=== PATIENT | female | born 1995 | race Caucasian/White ===

== ENCOUNTER 2021-03-14 06:00 | Inpatient (IN) | payer OTHER ==
[2021-03-11 10:29] VITALS: BMI 27.6
[2021-03-14] MEDS ORDERED: LACTATED RINGERS 1,000 ML IV ONE (06:15)
[2021-03-14] MEDS ORDERED: CITRIC ACID-SODIUM CITRATE 15 ML CUP PO ONE (06:15)
[2021-03-14] MEDS: LACTATED RINGERS 1,000 ML IV SCH ×3 (06:23→19:16)
[2021-03-14 06:33] LABS: Basophils % (A) 0 %; Eosinophils # (A) 0.1 k/uL (0-0.7); Eosinophils % (A) 1 %; HGB 12.8 gm/dL (11.4-16.0); Lymphocytes # (A) 1.4 k/uL (1.0-4.8); Lymphocytes % (A) 20 %; MCH 30.3 pg (25.0-35.0); MCHC 34.6 g/dL (31.0-37.0); MCV 87.6 fL (80.0-100.0); Monocytes # (A) 0.3 k/uL (0-1.0); Monocytes % (A) 5 %; Neutrophils # (A) 4.9 k/uL (1.3-7.7); Neutrophils % (A) 71 %; Platelet Count 152 k/uL (150-450); RBC 4.22 m/uL (3.80-5.40); WBC 6.9 k/uL (3.8-10.6)
[2021-03-14 06:41] LABS: Amphetamine Screen,Urine Not Detected (NotDetected); Barbiturate Screen,Urine Not Detected (NotDetected); Benzodiazepines Screen,Urine Not Detected (NotDetected); Cocaine Screen,Urine Not Detected (NotDetected); Methadone Screen, Urine Not Detected (NotDetected); Opiate Screen,Urine Not Detected (NotDetected); Oxycodone Screen, Urine Not Detected (NotDetected); Phencyclidine Screen,Urine Not Detected (NotDetected); Tricyclic Antidepressant,Urine Not Detected (NotDetected); Urn Cannabinoid Scrn Detected (NotDetected)
--- NOTE | 2021-03-14 07:38 | P.HPOB ---
History of Present Illness H&P Date: 03/14/21 Chief Complaint: Intrauterine family planning Patient is a 25-year-old 5 para 2 at 39 weeks gestation arise for repeat section and tubal. She is transferred my care at approximately 37 weeks due to the fact that her prior hospital does not due to ligations and she desires permanent sterilization. Risks/benefits/alternatives to this procedure were reviewed with the patient in detail all questions were answered for her prior to proceeding to the operative. Her course otherwise based on her description was unremarkable. She does have mild decrease in her platelets but they're stable at this time. No other signs or symptoms of preeclampsia or other thrombophilia this. On physical exam vital signs are stable and afebrile. Heart regular, lungs clear, extremities without pain. Abdomen soft and uterus is gravid. A reactive nonstress test is noted and antibiotics have been provided. We'll plan repeat section with bilateral tubal occlusion with Filshie clips. Past Medical History Past Medical History: GERD/Reflux Additional Past Medical History / Comment(s): low blood iron History of Any Multi-Drug Resistant Organisms: None Reported Past Surgical History: Appendectomy, Section, Tonsillectomy Past Anesthesia/Blood Transfusion Reactions: No Reported Reaction Past Psychological History: Anxiety, Depression Smoking Status: Never smoker Past Alcohol Use History: None Reported Past Drug Use History: Marijuana Additional Drug Use History / Comment(s): occasional for nausea - Past Family History Mother Family Medical History: No Reported History Medications and Allergies Home Medications Medication Instructions Recorded Confirmed Type Ferrous Sulfate [Feosol] 325 mg PO DAILY 03/11/21 03/14/21 History Pnv No.95/Ferrous Fum/Folic AC 1 each PO DAILY 03/11/21 03/14/21 History [ Multivitamin Tablet] Allergies Allergy/AdvReac Type Severity Reaction Status Date / Time No Known Allergies Allergy Verified 03/14/21 06:14 Exam Osteopathic Statement: *. No significant issues noted on an osteopathic structural exam other than those noted in the History and Physical/Consult. Vital Signs Temp Pulse Resp BP Pulse Ox 03/14/21 06:13 96.1 F L 78 16 127/61 96 Intake and Output 03/13/21 03/14/21 03/14/21 22:59 06:59 14:59 Other: Weight 77.564 kg - OBG Physical Exam Breast: both: normal (no masses) Abdomen: bowel sounds normal, no diffuse tenderness, no bruit present, no guarding noted, no hepatomegaly, no splenomegaly, no mass Vulva: both: normal Vagina: normal moisture, no discharge Cervix: no lesion, no discharge Uterus: normal size, normal contour Adnexa: both: normal Anus/Rectum: normal perianal skin, no rectal mass, no hemorrhoids, heme negative Results Result Diagrams: 03/14/21 06:20 Abnormal Lab Results - Last 24 Hours (Table) 03/14/21 Range/Units 06:16 U Marijuana (THC) Screen Detected H (NotDetected)
[2021-03-14] MEDS ORDERED: OXYTOCIN 30 UNITS/500 ML NS BAG IV ONE (07:50)
[2021-03-14] MEDS ORDERED: KETOROLAC 15 MG/ML 1 ML VIAL ONE (07:50)
[2021-03-14] MEDS ORDERED: MORPHINE SULFATE (PF) 0.3 MG/0.3 ML SYR ONE (07:50)
[2021-03-14] MEDS ORDERED: ONDANSETRON 4 MG/2 ML VIAL ONE (07:50)
[2021-03-14] MEDS ORDERED: PHENYLEPHRINE-0.9% NACL SYG 1,000 MCG/10 ML SYRINGE ONE (07:50)
[2021-03-14] MEDS ORDERED: NALBUPHINE 10 MG/ML (1 ML AMP) ONE (07:50)
[2021-03-14] MEDS ORDERED: diphenhydrAMINE 50 MG CAP PO PRN (08:41)
[2021-03-14] MEDS ORDERED: HYDROmorphone 2 MG TAB PO PRN ×2 (08:41)
[2021-03-14] MEDS ORDERED: diphenhydrAMINE 50 MG/ML 1 ML VIAL IVP PRN (08:41)
[2021-03-14] MEDS ORDERED: MEASLES-MUMPS-RUBELLA VACC/PF 12,500 UNIT/0.5 ML VIAL SQ ONE (08:41)
[2021-03-14] MEDS ORDERED: METOCLOPRAMIDE 5 MG/ML 2 ML VIAL IVP PRN (08:41)
[2021-03-14] MEDS ORDERED: SIMETHICONE 80 MG CHEWABLE PO PRN (08:41)
[2021-03-14] MEDS ORDERED: ONDANSETRON 4 MG/2 ML VIAL IVP PRN (08:41)
[2021-03-14] MEDS ORDERED: diphenhydrAMINE 25 MG CAP PO PRN (08:41)
[2021-03-14] MEDS ORDERED: NALOXONE 0.4 MG/ML 1 ML VIAL IV PRN ×2 (08:41→08:43)
[2021-03-14] MEDS ORDERED: ZOLPIDEM 5 MG TAB PO PRN (08:41)
[2021-03-14] MEDS ORDERED: MORPHINE SULFATE 2 MG/ML SYRINGE IVP PRN (08:43)
[2021-03-14] MEDS ORDERED: NALBUPHINE 10 MG/ML (1 ML AMP) IV PRN (08:43)
--- NOTE | 2021-03-14 08:45 | P.OP ---
Date of Procedure: 03/14/21 Preoperative Diagnosis: Intrauterine at term: Prior surgery and sections: Family planning Postoperative Diagnosis: Same with adhesions Procedure(s) Performed: Repeat low transverse section with lysis of adhesions and bilateral partial salpingectomy Anesthesia: spinal Surgeon: Chau Ojeda Caustic Room Operator #1: Shon Kong Estimated Blood Loss (ml): 300 IV fluids (ml): 1,000 Urine output (ml): 500 Pathology: none sent Condition: stable Disposition: floor Operative Findings: Male scores of 9 and 9 at one and 5 minutes respectively and weight was 6 lbs. 15 oz. Description of Procedure: Patient states the operating suite where a spinal anesthetic found be adequate. She was prepped and draped in normal sterile fashion and placed in dorsal supine position with leftward tilt. Initially a Pfannenstiel skin incision was made and this incision was then carried through to the underlying layer of the fascia was second knife. Fascia was then nicked in the midline and this opening was extended laterally with Hernandez scissors. Superior and inferior aspect of this incision were then grasped tented up and bluntly and sharply dissected off the rectus muscles. Rectus muscles were then divided midline and blunt dissected peritoneum was performed. This opening was then extended superiorly and inferiorly with good visualization of both bowel bladder. Bladder blade was then placed and bladder flap identified. It was entered with Metzenbaum scissors and carried across face the uterus. This bladder was then bluntly dissected out of the operative field. Knife was then used to incise uterus. It was fully developed with a hemostat and then extended bluntly. Head was then H medically delivered and a nuchal cord 1 was noted and easily reduced. Anterior posterior shoulders and easily delivered mouth nares again bulb suctioned once baby was fully delivered umbilical course clamped cut usual fashion an nursery personnel was present to assume care. Placenta was then delivered intact. Uterus was then exteriorized cleared of clots and debris and closed in 2 layers with 0 Vicryl suture. Once excellent hemostasis was obtained Bovie cautery was used to dissect omental adhesion off the anterior uterus. Blood and debris was then suctioned the posterior cul-de-sac. Fallopian tubes were then identified and each tube was grasped approximately 3 cm from uterine cornu and a window was created in the mesosalpinx with Bovie cautery. 2 proximal to distal 0 I Rory suture were then placed with the intervening approximately 1 cm segment excised and tips were cauterized bilaterally. Uterus was then reinserted into the abdomen and peritoneal layer was reapproximated with 3-0 Vicryl. Fascial layer was closed with 0 Vicryl. One layer of 3-0 Vicryl placed in deep subcuticular tissues to reapproximate skin and close space. Skin was then closed with 3-0 Vicryl subcuticularly. There was some undermining of the superior incision line to help even out the puckering that had been present for prior sections.
[2021-03-14] MEDS: diphenhydrAMINE 50 MG/ML 1 ML VIAL IVP PRN ×2 (13:12→20:53)
[2021-03-14] MEDS: KETOROLAC 15 MG/ML 1 ML VIAL IVP SCH (17:59)
[2021-03-14] MEDS: IBUPROFEN 600 MG TAB PO SCH (19:16)
[2021-03-14] MEDS: ACETAMINOPHEN TAB 500 MG TAB PO SCH ×2 (19:16→19:17)
[2021-03-15] MEDS: SENNOSIDES-DOCUSATE SODIUM 1 EACH TAB PO SCH ×3 (05:09→19:47)
[2021-03-15] MEDS: IBUPROFEN 600 MG TAB PO SCH ×5 (05:10→23:25)
[2021-03-15 06:45] LABS: Basophils % (A) 0 %; Eosinophils # (A) 0.1 k/uL (0-0.7); Eosinophils % (A) 1 %; HCT 30.7 % (34.0-46.0); HGB 10.4 gm/dL (11.4-16.0); Lymphocytes # (A) 0.8 k/uL (1.0-4.8); Lymphocytes % (A) 12 %; MCH 30.5 pg (25.0-35.0); MCHC 33.8 g/dL (31.0-37.0); MCV 90.4 fL (80.0-100.0); Mean Platelet Volume 8.5; Monocytes # (A) 0.3 k/uL (0-1.0); Monocytes % (A) 5 %; Neutrophils # (A) 5.1 k/uL (1.3-7.7); Neutrophils % (A) 79 %; Platelet Count 114 k/uL (150-450); RDW 15.1 % (11.5-15.5); WBC 6.4 k/uL (3.8-10.6)
--- NOTE | 2021-03-15 07:11 | P.PNOBGPC ---
Subjective - Subjective Patient reports: Reports appetite normal, Reports voiding normally, Reports pain well controlled, Reports ambulating normally : doing well Objective - Vital Signs Latest vital signs: Vital Signs Temp Pulse Resp BP Pulse Ox 03/15/21 04:00 98.0 F 78 16 110/64 03/15/21 00:00 98.2 F 84 16 110/78 03/14/21 19:52 97.8 F 79 16 108/64 03/14/21 16:00 98.4 F 68 16 115/60 98 03/14/21 13:43 98 03/14/21 12:00 98.2 F 68 16 118/58 99 03/14/21 11:43 16 03/14/21 10:53 71 16 113/63 03/14/21 10:23 98.0 F 63 16 117/55 03/14/21 09:53 68 16 108/63 03/14/21 09:43 16 98 03/14/21 09:38 71 16 102/57 96 03/14/21 09:23 68 16 94/51 97 03/14/21 09:08 70 16 110/58 97 03/14/21 08:45 97.0 F L 62 16 107/53 96 03/14/21 08:43 16 98 Intake and Output 03/14/21 03/15/21 03/15/21 22:59 06:59 14:59 Output Total 400 Balance -400 Output: Urine 400 - Exam Lungs: bilateral: normal Chest: Normal S1, Normal S2 Extremities: Present: normal Abdomen: Present: normal appearance, soft. Absent: distention, tenderness Incision: Present: normal, dry, intact Uterus: Present: normal, firm - Labs Labs: Abnormal Lab Results - Last 24 Hours (Table) 03/15/21 Range/Units 06:19 RBC 3.40 L (3.80-5.40) m/uL Hgb 10.4 L (11.4-16.0) gm/dL Hct 30.7 L (34.0-46.0) % Plt Count 114 L (150-450) k/uL Lymphocytes # 0.8 L (1.0-4.8) k/uL Assessment and Plan Assessment: Postoperative day #1. Patient is resting without new complaints. Vital signs are stable and she is afebrile. Uterus is firm nontender. Her incision is intact and the bandages a bit saturated however this appears to be old blood from yesterday and there is no active bleeding. Patient is tolerating regular diet and urinating without difficulty. CBC today shows a hemoglobin be 10.4. Plan today is to continue routine postoperative care. We'll allow the patient to shower, encourage ambulation, and continue present management. (1) delivery delivered Current Visit: Yes Status: Acute Code(s): O82 - ENCOUNTER FOR DELIVERY WITHOUT INDICATION SNOMED Code(s): 123195509
--- NOTE | 2021-03-15 08:38 | P.PN ---
Progress Note - Text Progress Note Date: 03/15/21 Postoperative day 1 status post section under spinal anesthesia, and intrathecal morphine given for postoperative analgesia, patient doing well, there is no anesthesia related complications Patient had no headache, vital signs stable Assessment and plan = postop day 1 status post , doing well there is no anesthesia related complication
[2021-03-15] MEDS: KETOROLAC 15 MG/ML 1 ML VIAL IVP SCH (08:40)
[2021-03-15] MEDS: ACETAMINOPHEN TAB 500 MG TAB PO SCH ×3 (19:45→19:57)
[2021-03-16] MEDS: ACETAMINOPHEN TAB 500 MG TAB PO SCH ×3 (02:03→08:28)
[2021-03-16] MEDS: SENNOSIDES-DOCUSATE SODIUM 1 EACH TAB PO SCH (04:04)
[2021-03-16] MEDS: IBUPROFEN 600 MG TAB PO SCH ×2 (04:32→06:07)
--- NOTE | 2021-03-16 06:53 | P.PNOBGPC ---
Subjective - Subjective Patient reports: Reports appetite normal, Reports voiding normally, Reports pain well controlled, Reports ambulating normally : doing well Objective - Vital Signs Latest vital signs: Vital Signs Temp Pulse Resp BP Pulse Ox 03/15/21 23:50 97.7 F 67 18 109/47 100 03/15/21 15:08 98.5 F 79 20 108/57 96 03/15/21 08:00 98.2 F 76 20 108/63 98 Intake and Output 03/15/21 03/15/21 03/16/21 14:59 22:59 06:59 Intake Total 240 240 Balance 240 240 Intake: Oral 240 240 Other: # Voids 1 1 1 # Bowel Movements 0 - Exam Lungs: bilateral: normal Chest: Normal S1, Normal S2 Extremities: Present: normal Abdomen: Present: normal appearance, soft. Absent: distention, tenderness Incision: Present: normal, dry, intact Uterus: Present: normal, firm Assessment and Plan Assessment: Postoperative day #2. Patient is resting without complaints and wishes to go home. Vital signs are stable and she is afebrile. Uterus is firm nontender and her incision is intact and dry. I impression this is a normal postoperative course. Plan is to continue routine postoperative care and discharge home later today. (1) delivery delivered Current Visit: Yes Status: Acute Code(s): O82 - ENCOUNTER FOR DELIVERY WITHOUT INDICATION SNOMED Code(s): 488642597
--- NOTE | 2021-03-16 06:58 | P.DS ---
Providers Date of admission: 03/14/21 06:00 Attending physician: Chau Ojeda Primary care physician: Stated None - Discharge Diagnosis(es) (1) delivery delivered Current Visit: Yes Status: Acute Patient Condition at Discharge: Good Plan - Discharge Summary New Discharge Prescriptions: New Ibuprofen [Motrin] 600 mg PO Q6H #30 tab oxyCODONE HCL [OxyIR] 5 mg PO Q6H PRN #12 tab PRN Reason: Pain No Action Ferrous Sulfate [Feosol] 325 mg PO DAILY Pnv No.95/Ferrous Fum/Folic AC [ Multivitamin Tablet] 1 each PO DAILY Discharge Medication List Ferrous Sulfate [Feosol] 325 mg PO DAILY 03/11/21 [History] Pnv No.95/Ferrous Fum/Folic AC [ Multivitamin Tablet] 1 each PO DAILY 03/11/21 [History] Ibuprofen [Motrin] 600 mg PO Q6H #30 tab 03/15/21 [Rx] oxyCODONE HCL [OxyIR] 5 mg PO Q6H PRN #12 tab 03/15/21 [Rx] Follow up Appointment(s)/Referral(s): Chau Ojeda DO [Doctor of Osteopathic Medicine] - 04/23/21 11:00 am (First follow up WednesdayMarch 26 @ 1:30pm) Patient Instructions/Handouts: (DC) Activity/Diet/Wound Care/Special Instructions: No heavy lifting or strenuous activity for 6 weeks. No intercourse or anything per vagina for 6 weeks. Please call if any fever, chills, excessive vaginal bleeding, and/or abdominal pain. Please get your blood drawn in our office in 1 week for repeat platelet count. Discharge Disposition: HOME SELF-CARE
--- NOTE | 2021-03-16 06:58 | P.DS ---
Providers Date of admission: 03/14/21 06:00 Expected date of discharge: 03/16/21 Attending physician: Chau Ojeda Primary care physician: Stated None - Discharge Diagnosis(es) (1) delivery delivered Current Visit: Yes Status: Acute Hospital Course: Please see dictated H&P per Dr. Stapleton and this patient's admission. Brief summary this is a 25-year-old 5 para 2 female admitted for elective repeat section and tubal ligation. Patient undergoes above-named surgery. Please see dictated operative note. On postoperative #2 patient's felt be stable to go home follow up with Dr. Stapleton in 1 week. Procedures: Repeat low transverse section and bilateral partial salpingectomy Patient Condition at Discharge: Good Plan - Discharge Summary New Discharge Prescriptions: New Ibuprofen [Motrin] 600 mg PO Q6H #30 tab oxyCODONE HCL [OxyIR] 5 mg PO Q6H PRN #12 tab PRN Reason: Pain No Action Ferrous Sulfate [Feosol] 325 mg PO DAILY Pnv No.95/Ferrous Fum/Folic AC [ Multivitamin Tablet] 1 each PO DAILY Discharge Medication List Ferrous Sulfate [Feosol] 325 mg PO DAILY 03/11/21 [History] Pnv No.95/Ferrous Fum/Folic AC [ Multivitamin Tablet] 1 each PO DAILY 03/11/21 [History] Ibuprofen [Motrin] 600 mg PO Q6H #30 tab 03/15/21 [Rx] oxyCODONE HCL [OxyIR] 5 mg PO Q6H PRN #12 tab 03/15/21 [Rx] Follow up Appointment(s)/Referral(s): Chau Ojeda DO [Doctor of Osteopathic Medicine] - 04/23/21 11:00 am (First follow up WednesdayMarch 26 @ 1:30pm) Patient Instructions/Handouts: (DC) Activity/Diet/Wound Care/Special Instructions: No heavy lifting or strenuous activity for 6 weeks. No intercourse or anything per vagina for 6 weeks. Please call if any fever, chills, excessive vaginal bleeding, and/or abdominal pain. Please get your blood drawn in our office in 1 week for repeat platelet count. Discharge Disposition: HOME SELF-CARE
[2021-03-16 08:50] VITALS: BP 112/63; PULSE 75; RESP 20; TEMP 98.2
== END 2021-03-16 10:50 | disposition home or self-care (01) | DRG 785 ==
LOC: 4FBP 06:00
PROVIDERS: ADMIT Obstetrics & Gynecology; ATTEND Obstetrics & Gynecology
PROC: 3E0134Z Introduction of Serum, Toxoid and Vaccine into Subcutaneous Tissue, Percutaneous Approach (ICD-10-PCS; 2021-03-14)
PROC: 0UB70ZZ Excision of Bilateral Fallopian Tubes, Open Approach (ICD-10-PCS; principal; 2021-03-14 08:00)
PROC: 10D00Z1 Extraction of Products of Conception, Low, Open Approach (ICD-10-PCS; principal; 2021-03-14 08:00)
DX: O34.211 Maternal care for low transverse scar from previous cesarean delivery (principal); K21.9 Gastro-esophageal reflux disease without esophagitis; O99.62 Diseases of the digestive system complicating childbirth; N85.8 Other specified noninflammatory disorders of uterus; Z37.0 Single live birth; Z3A.39 39 weeks gestation of pregnancy; Z23 Encounter for immunization; Z30.2 Encounter for sterilization; Z79.899 Other long term (current) drug therapy; Z90.89 Acquired absence of other organs; Z90.49 Acquired absence of other specified parts of digestive tract; Z87.19 Personal history of other diseases of the digestive system; Z86.59 Personal history of other mental and behavioral disorders; Z98.890 Other specified postprocedural states
CPT/HCPCS: 80306; 85025; 86850; 86900; 86901; 88302

== ENCOUNTER 2024-07-02 18:09 | Emergency (ER) | payer OTHER ==
[2024-07-02 18:12] VITALS: TEMP 98.1
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
[2024-07-02 20:00] VITALS: BP 108/72; PULSE 69; RESP 16
== END 2024-07-02 19:58 | disposition home or self-care (01) ==
LOC: EC 18:09
DX: S89.91XA Unspecified injury of right lower leg, initial encounter (principal); Y04.0XXA Assault by unarmed brawl or fight, initial encounter
CPT/HCPCS: 70450; 72125; 99284